=== PATIENT | male | born 1975 | race Caucasian/White ===

== ENCOUNTER 2020-08-30 22:42 | Emergency (ER) | payer OTHER ==
[~2020-08-30] VITALS: Ht 175.3 cm; Wt 136.4 kg
[2020-08-30 23:36] VITALS: BP 177/84
--- NOTE | 2020-08-30 23:51 | PHYS DOC ---
Past History Additional Past Medical Histor: gout Past Surgical History: No Surgical History Alcohol Use: Heavy Additional Alcohol Information: drinks 6-8 beers a night General Adult EDM: Chief Complaint: UPPER EXTREMITY INJURY HPI: HPI: 44-year-old male presents with left wrist pain. He fell onto an outstretched hand. He thinks it is likely broken. It is swollen and painful. Patient also has some abrasions on his lower legs and knows that his tetanus is not up-to-date. He would like a tetanus shot. Patient denies any other injuries or complaints at this time. Review of Systems: Review of Systems: Constitutional: Denies fever or chills Eyes: Denies change in visual acuity HENT: Denies nasal congestion or sore throat Respiratory: Denies cough or shortness of breath Cardiovascular: Denies chest pain or edema GI: Denies abdominal pain, nausea, vomiting, bloody stools or diarrhea : Denies dysuria Musculoskeletal: Left wrist pain Integument: Abrasions bilateral lower legs Neurologic: Denies headache, focal weakness or sensory changes Endocrine: Denies polyuria or polydipsia Lymphatic: Denies swollen glands Psychiatric: Denies depression or anxiety Allergies: Allergies: Allergies Coded Allergies Type Severity Reaction Last Updated Verified penicillin G Allergy Unknown 08/30/20 Yes Physical Exam: PE: Constitutional: Well developed, well nourished, no acute distress, non-toxic appearance. [] HENT: Normocephalic, atraumatic, bilateral external ears normal, oropharynx moist, no oral exudates, nose normal. [] Eyes: PERRLA, EOMI, conjunctiva normal, no discharge. [] Neck: Normal range of motion, no tenderness, supple, no stridor. [] Cardiovascular:Heart rate regular rhythm, no murmur [] Lungs & Thorax: Bilateral breath sounds clear to auscultation [] Abdomen: Bowel sounds normal, soft, no tenderness, no masses, no pulsatile masses. [] Skin: Superficial abrasions of the bilateral shins. [] Back: No tenderness, no CVA tenderness. [] Extremities: Swelling, tenderness, mild ecchymosis over the distal radius. [] Neurologic: Alert and oriented X 3, normal motor function, normal sensory function, no focal deficits noted. [] Psychologic: Affect normal, judgement normal, mood normal. [] Current Patient Data: Vital Signs: Vital Signs Date Time Temp Pulse Resp B/P (MAP) Pulse Ox O2 Delivery O2 Flow Rate FiO2 08/30/20 23:36 97.9 84 20 177/84 97 Room Air EKG: EKG: [] Radiology/Procedures: Radiology/Procedures: [] Heart Score: C/O Chest Pain: N/A Risk Factors: Risk Factors: DM, Current or recent (<one month) smoker, HTN, HLP, family history of CAD, obesity. Risk Scores: Score 0 - 3: 2.5% MACE over next 6 weeks - Discharge Home Score 4 - 6: 20.3% MACE over next 6 weeks - Admit for Clinical Observation Score 7 - 10: 72.7% MACE over next 6 weeks - Early Invasive Strategies Course & Med Decision Making: Course & Med Decision Making Pertinent Labs and Imaging studies reviewed. (See chart for details) The patient does have a broken radius. We will place him in a splint and advised that he follow-up with orthopedics. He is stable for discharge at this time. [] Dragon Disclaimer: Dragon Disclaimer: This electronic medical record was generated, in whole or in part, using a voice recognition dictation system. Departure Departure: Impression: Primary Impression: Fracture of left radius Qualified Codes: S52.572A - Other intraarticular fracture of lower end of left radius, initial encounter for closed fracture Disposition: HOME / SELF CARE / HOMELESS Condition: STABLE Referrals: PCP,NO (PCP) Patient Instructions: Wrist Fracture, [id number] YESSENIA GARCIA DO Aug 30, 2020 23:51
--- NOTE | 2020-08-30 23:52 | RAD ---
INDICATION: Reason: fall / Spl. Instructions: / History: COMPARISON: None. IMPRESSION: Left wrist: 3 views obtained. Small fracture fragment adjacent to the ulnar styloid. Displaced fractu re of the distal radius extending through the metaphysis which appears mildly displaced. Degenerative changes the partially visualized hand. Degenerative changes of carpal bones. There is also some dysm orphic changes the carpal bones which could be from chronic degeneration. Soft tissue swelling and nicole int effusion Electronically signed by: Marlon Douglass MD (08/30/2020 11:49 PM) [id number]
[2020-08-31] MEDS ORDERED: DIPH,PERTUSS(ACELL),TET VAC/PF 0.5 ML SYRINGE. VAX IM ONE
== END 2020-08-31 00:22 | disposition home or self-care (01) ==
LOC: ER 22:42
DX: S52.572A Other intraarticular fracture of lower end of left radius, initial encounter for closed fracture (principal); S80.812A Abrasion, left lower leg, initial encounter; S80.811A Abrasion, right lower leg, initial encounter; F10.20 Alcohol dependence, uncomplicated; Z88.0 Allergy status to penicillin; W18.39XA Other fall on same level, initial encounter; Y93.89 Activity, other specified; Y92.89 Other specified places as the place of occurrence of the external cause; Y99.8 Other external cause status; Y90.9 Presence of alcohol in blood, level not specified
CPT/HCPCS: 73110; 90471; 90715; 99284

== ENCOUNTER → 2020-09-09 | Outpatient (CLI) | payer OTHER ==
[2020-08-30 23:36] VITALS: BP 177/84
--- NOTE | 2020-09-09 15:21 | RAD ---
XR LT WRIST 3VIEWS 09/09/2020 3:13 PM Indication: Follow-up left wrist fracture Comparison: August 31, 2019 Left wrist radiographs Technique: 3 views of left wrist Findings: There is a mildly impacted, comminuted fracture of the distal radius extending through the medial met aphysis. No significant malalignment. Redemonstration of a small fracture fragment distal to the ulna r styloid there is similar soft tissue swelling. Similar degenerative changes of the carpal bones. Impression: Redemonstration of distal radial fracture without significant change. Electronically signed by: Gilson Desouza (09/09/2020 3:18 PM) [id number]
== END ==
LOC: RAD 14:46
PROVIDERS: ATTEND Physician Assistant
DX: S52.592D Other fractures of lower end of left radius, subsequent encounter for closed fracture with routine healing (principal); S52.612D Displaced fracture of left ulna styloid process, subsequent encounter for closed fracture with routine healing; X58.XXXD Exposure to other specified factors, subsequent encounter
CPT/HCPCS: 73110

== ENCOUNTER → 2020-09-30 | Outpatient (CLI) | payer OTHER ==
--- NOTE | 2020-09-30 16:45 | RAD ---
EXAM: LEFT WRIST 3 VIEWS. HISTORY: Fracture follow-up. COMPARISON: 09/09/2020. FINDINGS: A comminuted fracture of the distal radius demonstrates mild dorsal inclination of the dist al radioarticular surface. Alignment is unchanged. There is increased callus formation about the frac ture fragments consistent with progressive healing. Another fracture line intersects the distal radio ulnar joint, stable. A tiny ulnar styloid avulsion fracture is again noted. A loose body along the dorsum of the carpus measures 4 mm. Another prominent loose body versus chroni c fracture fragment is noted along the radial aspect of the scaphoid and measures 9 mm. IMPRESSION: 1. Healing comminuted fracture of the distal radius in unchanged alignment. 2. Tiny ulnar styloid avulsion fracture. Electronically signed by: Bryan Vargas MD (09/30/2020 4:43 PM) [id number]
== END ==
LOC: RAD 15:17
PROVIDERS: ATTEND Orthopaedic Surgery
DX: S52.612A Displaced fracture of left ulna styloid process, initial encounter for closed fracture (principal); S52.502A Unspecified fracture of the lower end of left radius, initial encounter for closed fracture; X58.XXXA Exposure to other specified factors, initial encounter; Y93.89 Activity, other specified; Y92.89 Other specified places as the place of occurrence of the external cause; Y99.8 Other external cause status
CPT/HCPCS: 73110

== ENCOUNTER → 2020-10-15 | Outpatient (CLI) | payer OTHER ==
--- NOTE | 2020-10-15 09:45 | RAD ---
EXAM: Left wrist, 3 views. HISTORY: Pain. COMPARISON: 09/30/2020 FINDINGS: 3 views of the left wrist are obtained. There has been no significant interval healing of a mildly displaced distal radial metaphyseal fracture with slight dorsal inclination of the distal rad ial articular surface. There is also an unchanged avulsion fracture fragment adjacent to the ulnar st yloid. 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 There is a suspected chronic nonunited fracture fragment along the distal scaphoid. There is trisca phe the and first carpometacarpal osteoarthritis. There is wrist soft tissue swelling. IMPRESSION: 1. No significant interval healing of a distal radial metaphyseal fracture. 2. No change in a tiny avulsion fracture fragment adjacent to the ulnar styloid. 3. 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 4. 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 Electronically signed by: Aishwarya Baron MD (10/15/2020 9:42 AM) [id number]
== END ==
LOC: RAD 09:19
DX: S62.102A Fracture of unspecified carpal bone, left wrist, initial encounter for closed fracture (principal); M19.032 Primary osteoarthritis, left wrist; X58.XXXA Exposure to other specified factors, initial encounter; Y93.89 Activity, other specified; Y92.89 Other specified places as the place of occurrence of the external cause; Y99.8 Other external cause status
CPT/HCPCS: 73110